=== PATIENT | female | born 1950 ===

== ENCOUNTER 2024-11-08 04:35 | Day surgery (SDC) | payer MEDICARE ==
[2024-11-06 16:26] VITALS: BMI 24.5
[2024-11-08 14:06] VITALS: TEMP 98.3
[2024-11-08 14:11] VITALS: BP 113/61; PULSE 60; RESP 15
== END 2024-11-08 12:50 | disposition home or self-care (01) ==
LOC: JASU-ENDO 04:35
PROVIDERS: ATTEND Student in an Organized Health Care Education/Training Program
PROC: 0DJD8ZZ Inspection of Lower Intestinal Tract, Via Natural or Artificial Opening Endoscopic (ICD-10-PCS; principal; 2024-11-08 11:00)
DX: Z12.11 Encounter for screening for malignant neoplasm of colon (principal); K57.30 Diverticulosis of large intestine without perforation or abscess without bleeding